=== PATIENT | female | born 1970 | race Caucasian/White ===

== ENCOUNTER 2022-04-20 19:56 | Inpatient (IN) | payer MEDICAID, OTHER ==
[~2022-04-20] VITALS: Ht 149.9 cm; Wt 66.8 kg
[~2022-04-20 19:56] MED LIST: CLON0.2T MT; GLIP2.5T3 MT; NIFE90TA60 PO
[2022-04-20] MEDS ORDERED: ONDANSETRON HCL 4MG/2ML INJ IV STA (21:27)
[2022-04-20 22:35] LABS: BASOPHILS % 0.7 % (0.0-2.0); HEMATOCRIT. 32.2 % (36.0-48.0); HEMOGLOBIN. 10.9 g/dL (12.0-16.0); LYMPHOCYTES % 7.8 % (20.0-50.0); MEAN CORPUSCULAR HEMOGLOBIN 32.3 pg (28.0-32.0); MEAN CORPUSCULAR VOLUME 95.3 fL (81.0-99.0); MEAN PLATELET VOLUME 8.9 fl (7.4-10.4); MONOCYTES % 3.6 % (2.0-8.0); NEUTROPHILS % 87.9 % (40.0-76.0); PLATELET 318 x1000/uL (130-400); RED BLOOD CELL COUNT 3.38 mill/uL (4.2-5.4); RED CELL DISTRIBUTION WIDTH 14.1 % (11.6-14.6)
[2022-04-20 22:39] LABS: CHLORIDE 96 mEq/L (98-107)
[2022-04-20] MEDS ORDERED: NIFEDIPINE XL 60MG TAB PO ONE (23:30)
[2022-04-20] MEDS ORDERED: HYDRALAZINE 20MG/ML VIAL IV ONE (23:30)
[2022-04-20] MEDS ORDERED: LOSARTAN POTASSIUM 50 MG TABLET PO ONE (23:30)
[2022-04-21] MEDS ORDERED: LABETALOL HCL VIAL 20 MG/4 ML VIAL IV ONE (01:30)
[2022-04-21 06:00] VITALS: BP 146/61
[2022-04-21] MEDS ORDERED: CALC667C PO (06:00)
[2022-04-21] MEDS ORDERED: LOSA50TA41 PO (06:33)
[2022-04-21] MEDS ORDERED: FAMO20TA8 PO (06:35)
[2022-04-21] MEDS ORDERED: humalog (06:35)
[2022-04-21] MEDS ORDERED: SIMV10TA97 PO (06:35)
[2022-04-21 08:00] VITALS: BP 166/77
[2022-04-21] MEDS ORDERED: ACETAMINOPHEN 325MG TABLET PO PRN (08:15)
[2022-04-21] MEDS ORDERED: CLONIDINE 0.1MG TABLET PO SCH (08:15)
[2022-04-21] MEDS ORDERED: DEXTROSE 50% WATER 50ML SYRINGE IV PRN (08:15)
[2022-04-21] MEDS: INSULIN LISPRO 100 UNITS/ML SUBCUT SCH ×4 (10:12→21:06)
[2022-04-21] MEDS: NIFEDIPINE XL 90MG TAB PO SCH (10:13)
[2022-04-21] MEDS: CLONIDINE 0.2MG TABLET PO SCH ×2 (10:16→21:04)
[2022-04-21 12:00] VITALS: BP 148/79
[2022-04-21] MEDS: BLOOD SUGAR DIAGNOSTIC STRIP TEST SCH ×3 (12:40→21:05)
[2022-04-21 14:11] LABS: PHOSPHORUS 3.7 mg/dL (2.5-4.9)
[2022-04-21 16:00] VITALS: BP 146/89
[2022-04-21 16:39] LABS: AMYLASE 54 IU/L (25-115)
[2022-04-21] MEDS: METOCLOPRAMIDE HCL 5MG TABLET PO SCH ×2 (18:01→23:43)
[2022-04-21 20:00] VITALS: BP 121/54
[2022-04-21] MEDS: ATORVASTATIN CALCIUM 10MG TABLET PO SCH (21:06)
[2022-04-21 21:37] VITALS: BP 121/54
[2022-04-22] VITALS: BP 97/40
[2022-04-22 04:00] VITALS: BP 156/67
[2022-04-22 06:25] LABS: BASOPHILS % 1.2 % (0.0-2.0); EOSINOPHILS % 1.8 % (0.0-5.0); HEMATOCRIT. 30.8 % (36.0-48.0); HEMOGLOBIN. 10.4 g/dL (12.0-16.0); LYMPHOCYTES % 27.9 % (20.0-50.0); MEAN CORPUSCULAR HEMOGLOBIN 32.7 pg (28.0-32.0); MEAN CORPUSCULAR VOLUME 96.6 fL (81.0-99.0); MONOCYTES % 7.6 % (2.0-8.0); NEUTROPHILS % 61.5 % (40.0-76.0); PLATELET 313 x1000/uL (130-400); RED BLOOD CELL COUNT 3.19 mill/uL (4.2-5.4); RED CELL DISTRIBUTION WIDTH 14.1 % (11.6-14.6)
[2022-04-22] MEDS: METOCLOPRAMIDE HCL 5MG TABLET PO SCH ×3 (06:28→18:19)
[2022-04-22] MEDS: BLOOD SUGAR DIAGNOSTIC STRIP TEST SCH ×4 (07:40→20:50)
[2022-04-22 08:00] VITALS: BP 179/85
[2022-04-22 08:30] LABS: CHLORIDE 94 mEq/L (98-107)
[2022-04-22 08:47] LABS: T4 FREE 1.45 ng/dL (0.76-1.46)
[2022-04-22] MEDS: INSULIN LISPRO 100 UNITS/ML SUBCUT SCH ×4 (09:49→21:24)
[2022-04-22] MEDS: PANTOPRAZOLE 40MG DR TABLET PO SCH (09:51)
[2022-04-22] MEDS: CLONIDINE 0.2MG TABLET PO SCH ×2 (09:51→21:22)
[2022-04-22] MEDS: LOSARTAN POTASSIUM 50 MG TABLET PO SCH (09:52)
[2022-04-22] MEDS: NIFEDIPINE XL 90MG TAB PO SCH (09:52)
[2022-04-22 12:00] VITALS: BP 189/75
[2022-04-22] MEDS ORDERED: ALTEPLASE 2MG/VIAL ITC SCH (12:30)
[2022-04-22] MEDS ORDERED: CEFAZOLIN 1000MG PREMIX 50 ML IV ONE (12:35)
[2022-04-22] MEDS ORDERED: LIDOCAINE HCL 1% 20ML VIAL (Pyxis) INJ ONE (12:46)
[2022-04-22] MEDS ORDERED: IOHEXOL-300 100 ML BOTTLE ONE (12:46)
[2022-04-22 14:02] LABS: PROTHROMBIN TIME 10.9 sec (9.6-11.0)
[2022-04-22] MEDS ORDERED: MIDAZOLAM HCL 2 MG/2 ML VIAL ONE (14:09)
[2022-04-22] MEDS ORDERED: FENTANYL CITRATE/PF 50MCG/ML 2ML VIAL ONE (14:09)
[2022-04-22 15:07] LABS: HEPATITIS B SURFACE ANTIGEN NEGATIVE
[2022-04-22] MEDS ORDERED: CEFAZOLIN 1000MG PREMIX 50 ML IV NR (15:15)
[2022-04-22 16:00] VITALS: BP 157/72
[2022-04-22 20:00] VITALS: BP 165/70
[2022-04-22] MEDS: ATORVASTATIN CALCIUM 10MG TABLET PO SCH (21:23)
[2022-04-23] VITALS (17 sets, daily range): BP systolic 107–179; BP diastolic 62–82
[2022-04-23] MEDS: METOCLOPRAMIDE HCL 5MG TABLET PO SCH ×4 (01:04→18:22)
[2022-04-23] MEDS: BLOOD SUGAR DIAGNOSTIC STRIP TEST SCH ×3 (06:07→17:42)
[2022-04-23] MEDS: PANTOPRAZOLE 40MG DR TABLET PO SCH (06:41)
[2022-04-23 07:34] LABS: HEMATOCRIT 32.5 % (36.0-48.0); HEMOGLOBIN 10.8 g/dL (12.0-16.0); MEAN CORPUSCULAR VOLUME 96.1 fL (81.0-99.0); PLATELET 314 x1000/uL (130-400); RED BLOOD CELL COUNT 3.38 mill/uL (4.2-5.4); RED CELL DISTRIBUTION WIDTH 14.6 % (11.6-14.6)
[2022-04-23] MEDS: INSULIN LISPRO 100 UNITS/ML SUBCUT SCH ×3 (07:58→17:43)
[2022-04-23] MEDS: NIFEDIPINE XL 90MG TAB PO SCH (09:32)
[2022-04-23] MEDS: LOSARTAN POTASSIUM 50 MG TABLET PO SCH (09:32)
[2022-04-23] MEDS: CLONIDINE 0.2MG TABLET PO SCH (09:32)
== END 2022-04-23 21:00 | disposition home or self-care (01) | DRG 48 ==
LOC: ER 19:56 → MICUSO 04-21 04:21 → 7WST 04-21 05:20
PROVIDERS: ADMIT Internal Medicine; ATTEND Internal Medicine
PROC: 5A1D70Z Performance of Urinary Filtration, Intermittent, Less than 6 Hours Per Day (ICD-10-PCS; principal; 2022-04-23)
DX: E11.43 Type 2 diabetes mellitus with diabetic autonomic (poly)neuropathy (principal); I12.0 Hypertensive chronic kidney disease with stage 5 chronic kidney disease or end stage renal disease; E11.22 Type 2 diabetes mellitus with diabetic chronic kidney disease; K31.84 Gastroparesis; D64.9 Anemia, unspecified; K80.20 Calculus of gallbladder without cholecystitis without obstruction; N18.6 End stage renal disease; Z20.822 Contact with and (suspected) exposure to COVID-19; Z99.2 Dependence on renal dialysis; Z79.899 Other long term (current) drug therapy
CPT/HCPCS: 36415; 71045; 74176; 80048; 80053; 80061; 82150; 82962; 83036; 84100; 84439; 84443; 85025; 85027; 86705; 86709; 86803; 87340; 87426; 90935; 93005; 99285; J0360; J0690; J1644; J1815; J2250; J2405; J2997; J3010; J3490; J8597; Q9967

== ENCOUNTER 2022-05-16 19:00 | Inpatient (IN) | payer MEDICAID, OTHER ==
[~2022-05-16] VITALS: Ht 149.9 cm; Wt 67.1 kg
[~2022-05-16 19:00] MED LIST changes: +CALC667C PO; +FAMO20TA8 PO; +LOSA50TA41 PO; +SIMV10TA97 PO; +humalog
[2022-05-16] MEDS ORDERED: ASPIRIN 81MG TABLET PO ONE (19:30)
[2022-05-16] MEDS ORDERED: ACETAMINOPHEN 325MG TABLET PO ONE (19:30)
[2022-05-16 20:15] LABS: BG BASE EXCESS 5.5 mmol/L (-2.0-2.0); BG CARBOXYHEMOGLOBIN 0.7 % (0.5-1.5); BG DEOXYHEMOGLOBIN 6.9 % (0.0-5.0); BG HCO3 ACT 29.3 mmol/L (22.0-26.0); BG METHEMOGLOBIN 0.1 % (0.0-1.5); BG OXYHEMOGLOBIN 92.3 % (94.0-97.0); BG PH 7.483 (7.350-7.450); BG PO2 61.2 mmHg (75.0-100.0); BG SAMPLE SITE RIGHT RADIAL; BG TOTAL HEMOGLOBIN 11.2 g/dL (12.0-18.0); BG VENT MODE NASAL CANNULA
[2022-05-16 20:40] LABS: HEMATOCRIT. 30.7 % (36.0-48.0); HEMOGLOBIN. 10.2 g/dL (12.0-16.0); MEAN CORPUSCULAR HEMOGLOBIN 32.1 pg (28.0-32.0); MEAN CORPUSCULAR VOLUME 96.2 fL (81.0-99.0); MEAN PLATELET VOLUME 9.7 fl (7.4-10.4); PLATELET 222 x1000/uL (130-400); RED BLOOD CELL COUNT 3.19 mill/uL (4.2-5.4); RED CELL DISTRIBUTION WIDTH 14.5 % (11.6-14.6)
[2022-05-16 20:49] LABS: CHLORIDE 96 mEq/L (98-107)
[2022-05-16 20:50] LABS: PARTIAL THROMBOPLASTIN TIME 34.5 sec (23.4-31.0)
[2022-05-16] MEDS ORDERED: PIPERACILLIN/TAZOBACTAM 3.375GM/50ML PREMIX IV ONE (21:00)
[2022-05-16] MEDS ORDERED: VANCOMYCIN 1G PREMIX 200 ML IV SCH (21:00)
[2022-05-16] MEDS ORDERED: PIPERACILLIN/TAZ 3.375G PREMIX 50 ML IV NR (21:15)
[2022-05-16 23:32] LABS: PLATELET ESTIMATE NORMAL
[2022-05-17] VITALS (71 sets, daily range): BP systolic 108–204; BP diastolic 66–110
[2022-05-17] MEDS ORDERED: ONDANSETRON HCL 4MG/2ML INJ IV PRN (08:00)
[2022-05-17] MEDS ORDERED: ACETAMINOPHEN 325MG TABLET PO PRN (08:00)
[2022-05-17] MEDS: NIFEDIPINE XL 90MG TAB PO SCH (09:00)
[2022-05-17] MEDS: PIPERACILLIN/TAZOBACTAM 3.375 G in DEXTROSE 5% WATER 50 ML IV SCH (11:19)
[2022-05-17] MEDS ORDERED: DEXTROSE 50% WATER 50ML SYRINGE IV PRN (14:00)
[2022-05-17] MEDS ORDERED: IPRATROPIUM/ALBUTEROL 0.5-3(2.5)MG/3ML NEB HHN PRN (14:15)
[2022-05-17 14:42] LABS: HEPATITIS B SURFACE ANTIGEN NEGATIVE
[2022-05-17] MEDS: BLOOD SUGAR DIAGNOSTIC STRIP TEST SCH ×2 (16:59→22:39)
[2022-05-17] MEDS: INSULIN LISPRO 100 UNITS/ML SUBCUT SCH ×2 (17:15→22:46)
[2022-05-17] MEDS: IPRATROPIUM/ALBUTEROL 0.5-3(2.5)MG/3ML NEB HHN SCH (20:33)
[2022-05-17] MEDS: GUAIFENESIN 600MG ER TABLET PO SCH (22:40)
[2022-05-18] VITALS (18 sets, daily range): BP systolic 108–179; BP diastolic 62–98
[2022-05-18] MEDS: IPRATROPIUM/ALBUTEROL 0.5-3(2.5)MG/3ML NEB HHN SCH ×3 (01:59→16:19)
[2022-05-18 06:34] LABS: BASOPHILS % 0.7 % (0.0-2.0); EOSINOPHILS % 1.3 % (0.0-5.0); HEMATOCRIT. 28.6 % (36.0-48.0); HEMOGLOBIN. 9.5 g/dL (12.0-16.0); LYMPHOCYTES % 15.8 % (20.0-50.0); MEAN CORPUSCULAR HEMOGLOBIN 32.4 pg (28.0-32.0); MEAN CORPUSCULAR VOLUME 96.9 fL (81.0-99.0); MEAN PLATELET VOLUME 9.9 fl (7.4-10.4); MONOCYTES % 4.8 % (2.0-8.0); NEUTROPHILS % 77.4 % (40.0-76.0); PLATELET 218 x1000/uL (130-400); RED BLOOD CELL COUNT 2.95 mill/uL (4.2-5.4); RED CELL DISTRIBUTION WIDTH 14.2 % (11.6-14.6)
[2022-05-18] MEDS: INSULIN LISPRO 100 UNITS/ML SUBCUT SCH ×2 (07:41→13:58)
[2022-05-18] MEDS: BLOOD SUGAR DIAGNOSTIC STRIP TEST SCH ×2 (07:41→12:00)
[2022-05-18] MEDS ORDERED: LOSARTAN POTASSIUM 50 MG TABLET PO SCH (09:15)
[2022-05-18] MEDS ORDERED: CLONIDINE 0.2MG TABLET PO SCH (09:15)
[2022-05-18] MEDS ORDERED: HYDRALAZINE 20MG/ML VIAL IV NR (09:15)
[2022-05-18] MEDS: PIPERACILLIN/TAZOBACTAM 3.375 G in DEXTROSE 5% WATER 50 ML IV SCH (09:37)
[2022-05-18] MEDS: NIFEDIPINE XL 90MG TAB PO SCH (09:37)
[2022-05-18] MEDS: GUAIFENESIN 600MG ER TABLET PO SCH (09:37)
[2022-05-18] MEDS ORDERED: LEVO250T74 MT (11:07)
== END 2022-05-18 18:00 | disposition home or self-care (01) | DRG 720 ==
LOC: ER 19:00 → EDBEDREQTM 21:21 → EDBEDREQ 21:21 → ENRESERV 23:51 → 5EST 05-17 00:50
PROVIDERS: ADMIT Internal Medicine; ATTEND Internal Medicine
PROC: 5A09357 Assistance with Respiratory Ventilation, Less than 24 Consecutive Hours, Continuous Positive Airway Pressure (ICD-10-PCS; principal; 2022-05-17)
PROC: 5A1D70Z Performance of Urinary Filtration, Intermittent, Less than 6 Hours Per Day (ICD-10-PCS; 2022-05-17)
DX: A41.9 Sepsis, unspecified organism (principal); J96.01 Acute respiratory failure with hypoxia; I13.2 Hypertensive heart and chronic kidney disease with heart failure and with stage 5 chronic kidney disease, or end stage renal disease; J18.9 Pneumonia, unspecified organism; N18.6 End stage renal disease; E11.22 Type 2 diabetes mellitus with diabetic chronic kidney disease; I50.9 Heart failure, unspecified; E66.9 Obesity, unspecified; Z20.822 Contact with and (suspected) exposure to COVID-19; D64.9 Anemia, unspecified; Z99.2 Dependence on renal dialysis; Z68.29 Body mass index [BMI] 29.0-29.9, adult; Z79.899 Other long term (current) drug therapy
CPT/HCPCS: 36415; 36600; 71045; 80048; 80053; 82375; 82805; 82962; 83036; 83605; 83880; 84484; 85025; 86705; 86709; 86803; 87340; 87426; 90935; 93005; 94660; 99291; J0360; J1815; J2543; J3370; J7060

== ENCOUNTER 2023-01-02 11:22 | Emergency (ER) | payer MEDICAID ==
[~2023-01-02] VITALS: Ht 152.4 cm; Wt 63.0 kg
[~2023-01-02 11:22] MED LIST changes: +AZIT250T12 MT; -LOSA50TA41 PO
[2023-01-02 11:37] VITALS: BP 190/78
[2023-01-02 11:39] VITALS: PULSE 85; RESP 18; TEMP 98.6
[2023-01-02 11:51] LABS: EOSINOPHILS % 0.9 % (0.0-5.0); HEMATOCRIT. 26.3 % (36.0-48.0); HEMOGLOBIN. 8.9 g/dL (12.0-16.0); LYMPHOCYTES % 15.4 % (20.0-50.0); MEAN CORPUSCULAR HGB CONC 33.8 g/dL (31.0-37.0); MEAN CORPUSCULAR VOLUME 91.7 fL (81.0-99.0); MEAN PLATELET VOLUME 8.6 fl (7.4-10.4); MONOCYTES % 7.6 % (2.0-8.0); NEUTROPHILS % 75.1 % (40.0-76.0); PLATELET 319 x1000/uL (130-400); RED BLOOD CELL COUNT 2.87 mill/uL (4.2-5.4); RED CELL DISTRIBUTION WIDTH 16.6 % (11.6-14.6)
[2023-01-02 11:52] LABS: CHLORIDE 96 mEq/L (98-107); INDEX HEMOLYSI 1 (1-3); INDEX ICTERIC 1 (1-4); INDEX LIPEMIC 1 (1-3); POTASSIUM 4.3 mEq/L (3.5-5.1); SODIUM 133 mEq/L (136-145)
[2023-01-02 11:56] LABS: PROTHROMBIN TIME 10.7 sec (9.6-11.0)
[2023-01-02 12:02] LABS: ALANINE AMINOTRANSFERASE 22 IU/L (13-61); ALBUMIN 3.8 g/dL (3.4-5.0); ASPARTATE AMINOTRANSFERASE 18 IU/L (15-37); BILIRUBIN TOTAL 0.4 mg/dL (0.1-1.0); CARBON DIOXIDE 30 mEq/L (21-32); GLUCOSE 129 mg/dL (70-105); PROTEIN TOTAL 8.1 g/dL (6.0-8.3); UREA NITROGEN BLOOD 28 mg/dL (7-21)
[2023-01-02 12:06] LABS: CREATININE 5.3 mg/dL (0.6-1.3)
== END 2023-01-02 14:50 | disposition home or self-care (01) ==
LOC: ER 11:22
DX: T82.838A Hemorrhage due to vascular prosthetic devices, implants and grafts, initial encounter (principal); I12.0 Hypertensive chronic kidney disease with stage 5 chronic kidney disease or end stage renal disease; E11.22 Type 2 diabetes mellitus with diabetic chronic kidney disease; N18.6 End stage renal disease; Z99.2 Dependence on renal dialysis; Z79.899 Other long term (current) drug therapy; X58.XXXA Exposure to other specified factors, initial encounter
CPT/HCPCS: 12001; 36415; 80053; 85025; 99283

== ENCOUNTER 2023-01-10 17:31 | Emergency (ER) | payer MEDICAID ==
[~2023-01-10] VITALS: Ht 144.8 cm; Wt 63.0 kg
[2023-01-10 17:57] VITALS: BP 223/97; PULSE 88; RESP 20; TEMP 98; O2SAT 100
== END 2023-01-10 20:00 | disposition left against medical advice (07) ==
LOC: ER 17:31
DX: Z53.21 Procedure and treatment not carried out due to patient leaving prior to being seen by health care provider (principal)
CPT/HCPCS: 99281

== ENCOUNTER 2023-12-28 12:29 | Inpatient (IN) | payer MEDICAID ==
[~2023-12-28] VITALS: Ht 165.1 cm; Wt 63.5 kg
[~2023-12-28 12:29] MED LIST changes: +HYDR50TA40 PO; +METO100T9 PO
[2023-12-28 13:01] LABS: EOSINOPHILS % 2.9 % (0.0-5.0); HEMATOCRIT. 33.1 % (36.0-48.0); HEMOGLOBIN. 10.6 g/dL (12.0-16.0); LYMPHOCYTES % 8.9 % (20.0-50.0); MEAN CORPUSCULAR HEMOGLOBIN 31.4 pg (28.0-32.0); MEAN CORPUSCULAR HGB CONC 31.9 g/dL (31.0-37.0); MEAN CORPUSCULAR VOLUME 98.3 fL (81.0-99.0); MEAN PLATELET VOLUME 9.7 fl (7.4-10.4); MONOCYTES % 5.4 % (2.0-8.0); NEUTROPHILS % 81.8 % (40.0-76.0); PLATELET 187 x1000/uL (130-400); RED BLOOD CELL COUNT 3.37 mill/uL (4.2-5.4); RED CELL DISTRIBUTION WIDTH 19.8 % (11.6-14.6); WHITE BLOOD COUNT 7.9 x1000/uL (4.5-11.0)
[2023-12-28 13:16] LABS: CHLORIDE 95 mEq/L (98-107); POTASSIUM 4.5 mEq/L (3.5-5.1); SODIUM 134 mEq/L (136-145)
[2023-12-28 13:17] LABS: CARBON DIOXIDE 30 mEq/L (21-32)
[2023-12-28 13:18] LABS: CALCIUM 10.3 mg/dL (8.7-10.4)
[2023-12-28 13:22] LABS: CREATININE 4.8 mg/dL (0.6-1.0); GLUCOSE 293 mg/dL (70-105); UREA NITROGEN BLOOD 29 mg/dL (9-23)
[2023-12-28 13:46] LABS: TROPONIN I HIGH SENSITIVITY 42 ng/L (3.0-34)
[2023-12-28] MEDS: AMPICILLIN SOD/SULBACTAM NA 3 G in SODIUM CHLORIDE 0.9% 100 ML IV SCH (16:01)
[2023-12-28] MEDS ORDERED: DOCUSATE SODIUM 100MG CAPSULE PO PRN (17:00)
[2023-12-28] MEDS ORDERED: MAGNESIUM/ALUMINUM HYDROXIDE/SIMETHICONE 30ML UDC PO PRN (17:00)
[2023-12-28] MEDS ORDERED: IPRATROPIUM/ALBUTEROL 0.5-3(2.5)MG/3ML NEB HHN PRN (17:00)
[2023-12-28] MEDS: BLOOD SUGAR DIAGNOSTIC STRIP TEST SCH (17:00)
[2023-12-28] MEDS ORDERED: GUAIFENESIN 200MG/10ML SUGAR FREE UDC PO PRN (17:00)
[2023-12-28] MEDS ORDERED: DEXTROSE 50% WATER 50ML SYRINGE IV PRN (17:00)
[2023-12-28] MEDS ORDERED: ACETAMINOPHEN 325MG TABLET PO PRN (17:00)
[2023-12-28] MEDS ORDERED: ASPI-1406 PO (17:08)
[2023-12-28] MEDS ORDERED: METO-385 PO (17:08)
[2023-12-28] MEDS ORDERED: HYDR50TA39 PO (17:08)
[2023-12-28] MEDS ORDERED: NIFE-32 PO (17:08)
[2023-12-28] MEDS: SEVELAMER CARBONATE 800 MG TABLET PO SCH (17:17)
[2023-12-28 17:29] LABS: IRON 37 ug/dL (50-170)
[2023-12-28 17:32] LABS: PHOSPHORUS 3.9 mg/dL (2.5-4.9); TOTAL IRON BINDING CAPACITY 196 ug/dl (250-425)
[2023-12-28 17:42] LABS: FERRITIN 556 ng/mL (10-291); FOLIC ACID (FOLATE) SERUM 16.31 ng/mL (>5.38)
[2023-12-28 17:43] LABS: VITAMIN B12 SERUM 440 pg/mL (211-911)
[2023-12-28 18:09] VITALS: BP 133/72; PULSE 77; RESP 20; TEMP 98
[2023-12-28] MEDS: INSULIN LISPRO 100 UNITS/ML SUBCUT SCH (18:41)
[2023-12-28 20:06] VITALS: BP 136/61; PULSE 72; RESP 18; TEMP 98.1
[2023-12-28] MEDS: ENOXAPARIN 30MG/0.3ML SYR SUBCUT SCH (21:00)
[2023-12-28] MEDS: HYDRALAZINE HCL 50MG TABLET PO SCH (21:00)
[2023-12-28] MEDS: ATORVASTATIN CALCIUM 10MG TABLET PO SCH (21:01)
[2023-12-28] MEDS: CEFAZOLIN 1000MG PREMIX 50ML IV SCH (21:01)
[2023-12-28 21:41] LABS: D-DIMER 0.59 mg/L FEU (<0.50); PARTIAL THROMBOPLASTIN TIME 28.2 sec (23.4-31.0); PROTHROMBIN TIME 11.5 sec (9.6-11.0)
[2023-12-28] MEDS ORDERED: CEFAZOLIN SODIUM 1000MG/VIAL IV SCH (22:00)
[2023-12-28] MEDS ORDERED: IOHEXOL-300 100 ML BOTTLE ONE (23:26)
[2023-12-29] VITALS (12 sets, daily range): BP systolic 122–207; BP diastolic 52–87; PULSE 54–81; RESP 18–20; TEMP 97.3–98.4
[2023-12-29] MEDS: CLONIDINE 0.1MG TABLET PO PRN (00:22)
[2023-12-29 00:44] LABS: CREATINE KINASE 34 IU/L (34-145)
[2023-12-29 00:46] LABS: CREATINE KINASE MB FRACTION < 0.5 ng/mL (0.5-3.6)
[2023-12-29 01:08] LABS: TROPONIN I HIGH SENSITIVITY 40 ng/L (3.0-34)
[2023-12-29 06:55] LABS: EOSINOPHILS % 2.6 % (0.0-5.0); HEMATOCRIT. 30.3 % (36.0-48.0); HEMOGLOBIN. 9.8 g/dL (12.0-16.0); MEAN CORPUSCULAR HEMOGLOBIN 31.7 pg (28.0-32.0); MEAN CORPUSCULAR HGB CONC 32.3 g/dL (31.0-37.0); MEAN CORPUSCULAR VOLUME 98.2 fL (81.0-99.0); MEAN PLATELET VOLUME 10.3 fl (7.4-10.4); MONOCYTES % 4.1 % (2.0-8.0); NEUTROPHILS % 80.3 % (40.0-76.0); PLATELET 187 x1000/uL (130-400); RED BLOOD CELL COUNT 3.09 mill/uL (4.2-5.4); RED CELL DISTRIBUTION WIDTH 20.7 % (11.6-14.6); WHITE BLOOD COUNT 7.6 x1000/uL (4.5-11.0)
[2023-12-29 06:56] LABS: CARBON DIOXIDE 29 mEq/L (21-32); CHLORIDE 96 mEq/L (98-107); POTASSIUM 4.6 mEq/L (3.5-5.1); SODIUM 135 mEq/L (136-145)
[2023-12-29 06:57] LABS: CALCIUM 9.7 mg/dL (8.7-10.4)
[2023-12-29 07:02] LABS: GLUCOSE 128 mg/dL (70-105); TRIGLYCERIDE 80 mg/dL (0-150); UREA NITROGEN BLOOD 37 mg/dL (9-23)
[2023-12-29 07:03] LABS: LDL CHOLESTEROL 89 mg/dL (5-100)
[2023-12-29 07:04] LABS: CHOLESTEROL 135 mg/dL (<200); CREATINE KINASE 29 IU/L (34-145); CREATINE KINASE MB FRACTION < 0.5 ng/mL (0.5-3.6); HDL CHOLESTEROL 35 mg/dL (>65)
[2023-12-29 07:08] LABS: T4 FREE 1.46 ng/dL (0.89-1.76)
[2023-12-29 08:12] LABS: CREATININE 5.7 mg/dL (0.6-1.0)
[2023-12-29 08:13] LABS: TROPONIN I HIGH SENSITIVITY 42 ng/L (3.0-34)
[2023-12-29] MEDS: NIFEDIPINE XL 60MG TAB PO SCH (08:23)
[2023-12-29] MEDS: METOPROLOL SUCCINATE 50MG ER TABLET PO SCH (08:24)
[2023-12-29] MEDS: FAMOTIDINE 20MG TABLET PO SCH (08:24)
[2023-12-29] MEDS: FOLIC ACID/VITAMIN B COMP W-C TABLET PO SCH (08:24)
[2023-12-29] MEDS: ASPIRIN 81MG EC TABLET PO SCH (08:25)
[2023-12-29] MEDS: HYDRALAZINE HCL 100MG TABLET PO SCH (12:18)
[2023-12-29] MEDS: DOXAZOSIN MESYLATE 2MG TABLET PO SCH (12:18)
[2023-12-29 17:24] LABS: CREATINE KINASE MB FRACTION 0.7 ng/mL (0.5-3.6)
[2023-12-29] MEDS ORDERED: HYDRALAZINE HCL 100MG TABLET PO SCH (21:00)
[2023-12-29] MEDS: ATORVASTATIN CALCIUM 10MG TABLET PO SCH (21:10)
[2023-12-30] VITALS: BP 178/70; PULSE 74; RESP 20; TEMP 98.2
[2023-12-30] MEDS: ACETAMINOPHEN 325MG TABLET PO PRN (00:22)
[2023-12-30 03:51] VITALS: BP 150/63; PULSE 79; RESP 20; TEMP 97.6
[2023-12-30 07:33] LABS: BASOPHILS % 1.2 % (0.0-2.0); EOSINOPHILS % 2.9 % (0.0-5.0); HEMATOCRIT. 33.1 % (36.0-48.0); HEMOGLOBIN. 10.4 g/dL (12.0-16.0); LYMPHOCYTES % 10.5 % (20.0-50.0); MEAN CORPUSCULAR HEMOGLOBIN 31.1 pg (28.0-32.0); MEAN CORPUSCULAR HGB CONC 31.3 g/dL (31.0-37.0); MEAN CORPUSCULAR VOLUME 99.4 fL (81.0-99.0); MEAN PLATELET VOLUME 9.7 fl (7.4-10.4); MONOCYTES % 3.4 % (2.0-8.0); PLATELET 198 x1000/uL (130-400); RED BLOOD CELL COUNT 3.32 mill/uL (4.2-5.4); RED CELL DISTRIBUTION WIDTH 20.3 % (11.6-14.6)
[2023-12-30 07:52] LABS: POTASSIUM 4.4 mEq/L (3.5-5.1)
[2023-12-30 07:54] LABS: CALCIUM 9.9 mg/dL (8.7-10.4)
[2023-12-30 08:00] VITALS: BP_SYST 192; BP_DIAS 71; BP_DIAS 76; PULSE 80; RESP 20; TEMP 98.1
[2023-12-30 08:16] LABS: CREATININE 6.2 mg/dL (0.6-1.0)
[2023-12-30] MEDS ORDERED: LIDOCAINE HCL/EPINEPHRINE 1%-EPI 1:100,000 50 ML VIAL INFIL ONE (11:15)
[2023-12-30 11:35] VITALS: BP 171/68; PULSE 69; RESP 18; TEMP 98.6
[2023-12-30] MEDS: NIFEDIPINE XL 30MG TAB PO NR (11:45)
[2023-12-30] MEDS: METOPROLOL TARTRATE 50MG TABLET PO NR (12:45)
[2023-12-30 16:00] VITALS: BP 130/56; PULSE 68; RESP 18; TEMP 98.4
[2023-12-30 20:48] VITALS: BP 107/53; PULSE 72; RESP 18; TEMP 98.1
[2023-12-31] VITALS: BP 155/48; PULSE 65; RESP 19; TEMP 97
[2023-12-31] MEDS: MELATONIN 3MG TABLET PO NR (01:53)
[2023-12-31 04:30] VITALS: BP 148/52; PULSE 66; RESP 20; TEMP 97.3
[2023-12-31 08:25] LABS: BASOPHILS % 1.3 % (0.0-2.0); EOSINOPHILS % 2.3 % (0.0-5.0); HEMATOCRIT. 31.3 % (36.0-48.0); LYMPHOCYTES % 10.6 % (20.0-50.0); MEAN CORPUSCULAR HEMOGLOBIN 31.5 pg (28.0-32.0); MEAN CORPUSCULAR HGB CONC 32.1 g/dL (31.0-37.0); MEAN CORPUSCULAR VOLUME 98.1 fL (81.0-99.0); MEAN PLATELET VOLUME 9.7 fl (7.4-10.4); MONOCYTES % 5.1 % (2.0-8.0); NEUTROPHILS % 80.7 % (40.0-76.0); PLATELET 185 x1000/uL (130-400); RED BLOOD CELL COUNT 3.19 mill/uL (4.2-5.4); RED CELL DISTRIBUTION WIDTH 20.4 % (11.6-14.6); WHITE BLOOD COUNT 6.2 x1000/uL (4.5-11.0)
[2023-12-31 08:29] LABS: POTASSIUM 4.6 mEq/L (3.5-5.1)
[2023-12-31 08:31] LABS: CALCIUM 9.9 mg/dL (8.7-10.4)
[2023-12-31 08:41] LABS: CREATININE 7.2 mg/dL (0.6-1.0)
[2023-12-31 08:47] VITALS: BP 151/52; PULSE 71; RESP 18; TEMP 98.4
[2023-12-31] MEDS: NIFEDIPINE XL 60MG TAB PO SCH (10:22)
[2023-12-31] MEDS: METOPROLOL SUCCINATE 50MG ER TABLET PO SCH (10:23)
[2023-12-31] MEDS ORDERED: OXYCODONE HCL/ACETAMINOPHEN 5/325MG TABLET PO PRN (10:30)
[2023-12-31] MEDS ORDERED: NALOXONE HCL 0.4MG/ML VIAL IV PRN (10:45)
[2023-12-31] MEDS: LIDOCAINE HCL 1% 10 MG/ML 10ML VIAL INJ NR (11:37)
[2023-12-31 11:44] VITALS: BP 162/54; PULSE 71; RESP 18; TEMP 97.3
[2023-12-31 16:35] VITALS: BP 126/52; PULSE 58; RESP 20; TEMP 97.1
[2023-12-31 20:00] VITALS: BP 123/74; PULSE 96; RESP 18; TEMP 98.4
[2023-12-31] MEDS: ONDANSETRON HCL 4MG/2ML INJ IV PRN (20:50)
[2023-12-31] MEDS: MECLIZINE 12.5MG TABLET PO NR (22:18)
[2024-01-01] VITALS (9 sets, daily range): BP systolic 112–170; BP diastolic 40–92; PULSE 57–78; RESP 18–19; TEMP 97.4–98.2
[2024-01-01 09:14] LABS: POTASSIUM 5.8 mEq/L (3.5-5.1)
[2024-01-01 09:15] LABS: CALCIUM 9.8 mg/dL (8.7-10.4)
[2024-01-01 09:47] LABS: CREATININE 8.8 mg/dL (0.6-1.0)
[2024-01-01] MEDS ORDERED: METOCLOPRAMIDE HCL 10MG/2ML VIAL IV PRN (10:00)
[2024-01-01] MEDS: METOCLOPRAMIDE HCL 10MG/2ML VIAL IV ONE (10:27)
[2024-01-01] MEDS: INSULIN REGULAR (HUMULIN R) 1000UNITS/10ML VIAL IV NR (12:56)
[2024-01-01] MEDS: SODIUM BICARBONATE 8.4% 50MEQ/50ML SYR IV NR (12:56)
[2024-01-01] MEDS: DEXTROSE 50% WATER 50ML SYRINGE IV NR (12:57)
[2024-01-01 20:50] LABS: POTASSIUM 4.2 mEq/L (3.5-5.1)
[2024-01-02] VITALS: BP 174/62; PULSE 72; RESP 20; TEMP 98.2
[2024-01-02 04:00] VITALS: BP 183/70; PULSE 75; RESP 20; TEMP 97.3
[2024-01-02] MEDS ORDERED: HYDRALAZINE 10 MG in SODIUM CHLORIDE 0.9% 49.5 ML IV PRN (06:00)
[2024-01-02] MEDS ORDERED: HYDRALAZINE 20MG/ML VIAL IV PRN ×2 (06:00→06:15)
[2024-01-02 08:00] VITALS: BP 176/59; PULSE 80; RESP 19; TEMP 97.7
[2024-01-02] MEDS: NIFEDIPINE XL 90MG TAB PO SCH (09:15)
[2024-01-02] MEDS ORDERED: AMOX1TAB16 MT (09:47)
[2024-01-02 12:00] VITALS: BP 141/40; PULSE 68; RESP 19; TEMP 97.8
[2024-01-02 13:30] VITALS: BP 141/40; PULSE 68; TEMP 97.8; O2SAT 98
== END 2024-01-02 16:26 | disposition home health service (06) | DRG 364 ==
LOC: ER 12:29 → EDBEDREQ 16:15 → EDBEDREQTM 16:15 → 7WST 18:44
PROVIDERS: ADMIT Hospitalist; ATTEND Hospitalist
PROC: 5A1D70Z Performance of Urinary Filtration, Intermittent, Less than 6 Hours Per Day (ICD-10-PCS; 2023-12-29)
PROC: 0J9Q0ZZ Drainage of Right Foot Subcutaneous Tissue and Fascia, Open Approach (ICD-10-PCS; principal; 2023-12-31)
PROC: 5A1D70Z Performance of Urinary Filtration, Intermittent, Less than 6 Hours Per Day (ICD-10-PCS; 2024-01-01)
DX: L03.115 Cellulitis of right lower limb (principal); I21.A1 Myocardial infarction type 2; I13.2 Hypertensive heart and chronic kidney disease with heart failure and with stage 5 chronic kidney disease, or end stage renal disease; E87.1 Hypo-osmolality and hyponatremia; D63.1 Anemia in chronic kidney disease; N18.6 End stage renal disease; E11.22 Type 2 diabetes mellitus with diabetic chronic kidney disease; I50.9 Heart failure, unspecified; E11.51 Type 2 diabetes mellitus with diabetic peripheral angiopathy without gangrene; E11.40 Type 2 diabetes mellitus with diabetic neuropathy, unspecified; E11.65 Type 2 diabetes mellitus with hyperglycemia; I70.298 Other atherosclerosis of native arteries of extremities, other extremity; Z99.2 Dependence on renal dialysis; E78.00 Pure hypercholesterolemia, unspecified; I25.10 Atherosclerotic heart disease of native coronary artery without angina pectoris; L02.611 Cutaneous abscess of right foot; I16.0 Hypertensive urgency; H54.7 Unspecified visual loss; Z86.718 Personal history of other venous thrombosis and embolism; Z86.74 Personal history of sudden cardiac arrest; Z95.5 Presence of coronary angioplasty implant and graft; Z82.49 Family history of ischemic heart disease and other diseases of the circulatory system; Z79.899 Other long term (current) drug therapy; Z79.82 Long term (current) use of aspirin; S90.31XA Contusion of right foot, initial encounter; X58.XXXA Exposure to other specified factors, initial encounter; Y93.89 Activity, other specified; Y92.89 Other specified places as the place of occurrence of the external cause; Y99.8 Other external cause status
CPT/HCPCS: 36415; 71045; 73702; 80048; 80061; 82550; 82553; 82607; 82728; 82746; 82962; 83036; 83540; 83550; 83735; 84100; 84132; 84145; 84439; 84443; 84484; 85025; 85379; 85651; 87070; 90935; 93005; 93922; 93970; 97110; 97162; 97166; 97530; 99285; J0295; J0360; J0690; J1650; J1815; J2405; J2765; J3490; J7050; J8597; Q9967